=== PATIENT | female | born 1955 | race Caucasian/White ===

== ENCOUNTER 2019-04-11 09:34 | Outpatient (RCR) | payer OTHER, SELFPAY ==
[2019-04-11 09:45] VITALS: BMI 29.9
[2019-04-11 11:21] VITALS: BMI 29.9
== END 2019-07-10 23:59 | disposition home or self-care (01) ==
LOC: ANHDMC 09:34
DX: E11.9 Type 2 diabetes mellitus without complications (principal); Z71.3 Dietary counseling and surveillance
CPT/HCPCS: 97802

== ENCOUNTER 2019-05-10 09:53 | Outpatient (CLI) | payer OTHER, SELFPAY ==
--- NOTE | ~2019-05-10 | XR_ITS ---
XR ankle RT min 3V DATE: 05/10/2019 10:58 INDICATION: Right ankle and foot pain TECHNIQUE: 3 weightbearing views COMPARISON: None FINDINGS: No fracture or dislocation of the ankle or disruption of the ankle mortise is detected. No periosteal reaction or bone destruction. IMPRESSION: Negative right ankle Reviewed, dictated and finalized at location B. 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
--- NOTE | ~2019-05-10 | XR_ITS ---
XR foot RT min 3V DATE: 05/10/2019 10:58 INDICATION: Ankle and foot pain TECHNIQUE: 3 weightbearing views COMPARISON: None FINDINGS: Mild osteoarthritis at the first metatarsophalangeal joint. There is suggestion of calcaneal cuboid coalition on one view; consider CT evaluation.. Mild plantar calcaneal enthesopathy without evidence of erosive change or periostitis. IMPRESSION: Suggestion of calcaneal cuboid coalition on one view; consider CT evaluation Plantar calcaneal enthesopathy Mild osteoarthritis at first metatarsophalangeal joint Reviewed, dictated and finalized at location B. 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
== END 2019-05-10 09:54 | disposition home or self-care (01) ==
PROVIDERS: Visit Provider Podiatrist Foot & Ankle Surgery
DX: M19.071 Primary osteoarthritis, right ankle and foot (principal)
CPT/HCPCS: 73610; 73630

== ENCOUNTER 2019-05-10 10:19 | Outpatient (CLI) | payer OTHER, SELFPAY ==
--- NOTE | ~2019-05-10 | XR_ITS ---
XR lumbar spine min 4V DATE: 05/10/2019 11:00 INDICATION: Acute left low back pain with left sciatica TECHNIQUE: AP, lateral, bilateral oblique and coned lateral lumbosacral views COMPARISON: None FINDINGS: There is minimal levoscoliosis of the lumbar spine. There are 6 functional lumbar vertebrae . No fracture or bone destruction, spondylolysis or spondylolisthesis. The lumbar pedicles are intact. The lumbar and lumbosacral interspaces are relatively preserved. There is mild degenerative spurring. The sacroiliac joints are normal. Surgical clips, right upper quadrant, consistent with cholecystectomy. IMPRESSION: Mild levoscoliosis Mild degenerative spurring Status post cholecystectomy Reviewed, dictated and finalized at location B. 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
== END 2019-05-10 10:20 | disposition home or self-care (01) ==
DX: M54.42 Lumbago with sciatica, left side (principal); Z90.49 Acquired absence of other specified parts of digestive tract
CPT/HCPCS: 72110

== ENCOUNTER 2019-08-17 07:51 | Outpatient (RCR) | payer OTHER, SELFPAY ==
[2019-08-17 07:57] VITALS: BMI 28.3
== END 2019-11-15 23:59 | disposition home or self-care (01) ==
LOC: ANHDMC 07:51
DX: E11.9 Type 2 diabetes mellitus without complications (principal); Z71.3 Dietary counseling and surveillance
CPT/HCPCS: 97803

== ENCOUNTER 2020-02-22 14:45 | Outpatient (RCR) | payer OTHER, SELFPAY ==
[2020-02-22 14:59] VITALS: BMI 28.4
== END 2020-05-14 11:33 | disposition home or self-care (01) ==
LOC: ANHDMC 14:45
DX: E11.9 Type 2 diabetes mellitus without complications (principal); Z71.3 Dietary counseling and surveillance
CPT/HCPCS: 97803

== ENCOUNTER 2020-12-07 08:55 | Outpatient (CLI) | payer OTHER, SELFPAY ==
--- NOTE | ~2020-12-07 | DEXA_ITS ---
Bone Density Report Name: Mitzy La Age: 65 Sex: Female Ethnicity: White Date of : 1955 Indication: osteopenia; height loss; postmenopausal Referring Provider: Ash, Korey Study: Bone densitometry was performed. Exam Date: December 07, 2020 Accession number: [id number] Bone Density: Region BMD T-score Z-score Classification AP Spine (L1-L4) 0.872 -1.6 0.4 Osteopenia Femoral Neck (Left) 0.637 -1.9 -0.3 Osteopenia Total Hip (Left) 0.806 -1.1 0.3 Osteopenia Total Hip Bilateral Avg 0.813 -1.1 0.4 Osteopenia Femoral Neck (Right) 0.703 -1.3 0.3 Osteopenia Total Hip (Right) 0.820 -1.0 0.4 Normal World Health Organization criteria for BMD impression classify patients as: Normal (T-score at or above -1.0), Osteopenia (T-score between -1.0 and -2.5), or Osteoporosis (T-score at or below -2.5). 10-year Fracture Risk(1): Major Osteoporotic Fracture 10% Hip Fracture 1.5% Reported Risk Factors: [place] (), Neck BMD=0.637, BMI=30.3 (1) FRAX(R) Version 3.08. Fracture probability calculated for an untreated patient. Fracture probability may be lower if the patient has received treatment. Previous Exams: Region Exam Age BMD T-score BMD Change BMD Change Date g/cm2 vs Baseline vs Previous AP Spine(L1-L4) 12/07/2020 65 0.872 -1.6 -0.181(-17.2%) 0.015(1.7%) 11/25/2018 63 0.858 -1.7 -0.195(-18.5%) -0.053(-5.8%)* 11/12/2016 61 0.910 -1.2 -0.143(-13.6%) 0.060(7.1%)* 10/17/2014 59 0.850 -1.8 -0.203(-19.3%) -0.057(-6.2%)# 07/25/2012 57 0.907 -1.3 -0.146(-13.9%) -0.022(-2.4%)# 06/27/2010 55 0.929 -1.1 -0.124(-11.8%) -0.124(-11.8%) 06/18/2008 53 1.053 0.1 Total Hip(Left) 12/07/2020 65 0.806 -1.1 -0.104(-11.4%) -0.010(-1.2%) 11/25/2018 63 0.816 -1.0 -0.093(-10.3%) -0.030(-3.6%)* 11/12/2016 61 0.846 -0.8 -0.063(-7.0%)# 0.055(6.9%)* 10/17/2014 59 0.792 -1.2 -0.118(-13.0%) -0.030(-3.6%)# 07/25/2012 57 0.822 -1.0 -0.088(-9.7%)# -0.041(-4.7%)# 06/27/2010 55 0.862 -0.7 -0.047(-5.2%)* -0.047(-5.2%)* 06/18/2008 53 0.909 -0.3 Total Hip(Right) 12/07/2020 65 0.820 -1.0 -0.098(-10.7%) 0.006(0.7%) 11/25/2018 63 0.814 -1.0 -0.104(-11.3%) -0.025(-3.0%) 11/12/2016 61 0.839 -0.8 -0.079(-8.6%)# 0.014(1.7%) 10/17/2014 59 0.825 -1.0 -0.093(-10.1%) -0.037(-4.3%)# 07/25/2012 57 0.862 -0.7 -0.056(-6.1%)# -0.016(-1.8%)# 06/27/2010 55 0.877 -0.5 -0.041(-4.4%)* -0.041(-4.4%)* 06/18/2008 53 0.918 -0.2 *Denotes significance at 95% confi
== END 2020-12-07 08:56 | disposition home or self-care (01) ==
LOC: ANHIMG 08:57
PROVIDERS: Visit Provider Internal Medicine
DX: M85.80 Other specified disorders of bone density and structure, unspecified site (principal); E55.9 Vitamin D deficiency, unspecified; Z78.0 Asymptomatic menopausal state
CPT/HCPCS: 77080

== ENCOUNTER 2021-02-22 08:47 | Outpatient (CLI) | payer OTHER, SELFPAY ==
--- NOTE | ~2021-02-22 | MR_ITS ---
EXAMINATION: MR lower leg LT wo con DATE: 02/22/2021 09:58 INDICATION: Several months of nontraumatic left lower leg pain at the knee and calf. TECHNIQUE: Magnetic resonance imaging (MRI) of the left lower leg was performed without intravenous c ontrast. Sequences included axial, sagittal and coronal T1-weighted FSE and fluid sensitive FSE STIR. The contralateral right lower limbs included on the coronal images. COMPARISON: None. FINDINGS: Bone alignment is normal. There is normal marrow signal throughout with no reactive edema, fracture o r pathologic marrow replacing process. No asymmetric muscle atrophy or abnormal muscle signal at the calves. Physiologic amount of fluid at the knees and ankles. Relatively symmetric minimal subcutaneou s edema along the anterior margin of the tibia and posteriorly at the mid to distal calves. No other abnormal fluid collections identified. IMPRESSION: 1. Unremarkable MRI of the left calf with normal bone marrow and muscle signal with no evident etiolo gy for reported left lower leg pain. Reviewed, dictated and finalized at location A. 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 Unremarkable MRI of the left calf with normal bone marrow and muscle signal with no evident etiology for reported left lower leg pain.
== END 2021-02-22 08:48 | disposition home or self-care (01) ==
LOC: ANHIMG 08:56
PROVIDERS: Visit Provider Internal Medicine
DX: M79.605 Pain in left leg (principal); E11.42 Type 2 diabetes mellitus with diabetic polyneuropathy; I73.9 Peripheral vascular disease, unspecified
CPT/HCPCS: 73718

== ENCOUNTER 2021-03-07 08:21 | Outpatient (CLI) | payer OTHER, SELFPAY ==
--- NOTE | ~2021-03-07 | US_ITS ---
US arterial ankle brachial ind INDICATION: Left leg pain and peripheral neuropathy TECHNIQUE: Segmental pressures and plethysmographic and Doppler waveforms of the brachial and lower e xtremity arteries were obtained. COMPARISON: 03/24/2018. FINDINGS: Right and left brachial artery pressures of 136 mm Hg and 140 mm Hg, respectively, are concordant (no rmal difference <= 30 mmHg). The right ankle-brachial index (FARZANA) is 1.2 (normal >= 0.9-1.0). The right great toe-brachial index ( TBI) is 0.64 (normal >= 0.60). The left FARZANA is 1.15. The left TBI is 0.58. IMPRESSION: 1. Mildly diminished left toe brachial index measuring 0.58, compatible with mild peripheral arterial disease. Normal ankle-brachial indices bilaterally. Reviewed, dictated and finalized at location A. OLOGIST IMPRESSION: 1. Mildly diminished left toe brachial index measuring 0.58, compatible with mi ld peripheral arterial disease. Normal ankle-brachial indices bilaterally.
== END 2021-03-07 08:22 | disposition home or self-care (01) ==
PROVIDERS: Visit Provider Internal Medicine
DX: E11.42 Type 2 diabetes mellitus with diabetic polyneuropathy (principal); I73.9 Peripheral vascular disease, unspecified; M79.605 Pain in left leg
CPT/HCPCS: 93922

== ENCOUNTER 2023-03-09 07:57 | Outpatient (CLI) | payer OTHER, SELFPAY ==
--- NOTE | ~2023-03-09 | DEXA_ITS ---
Bone Density Report Name: JASMIN HARRIS Age: 67 Sex: Female Ethnicity: White Date of : 1955 Indication: osteopenia; height loss; postmenopausal Referring Provider: ALEX, ARLETTE Study: Bone densitometry was performed. Exam Date: March 09, 2023 Accession number: [id number] Bone Density: Region BMD T-score Z-score Classification AP Spine(L1-L4) 0.867 -1.6 0.5 Osteopenia Femoral Neck (Left) 0.650 -1.8 0.0 Osteopenia Total Hip (Left) 0.790 -1.2 0.2 Osteopenia Femoral Neck (Right) 0.724 -1.1 0.7 Osteopenia Total Hip (Right) 0.806 -1.1 0.4 Osteopenia Total Hip Mean 0.798 -1.2 0.3 Osteopenia World Health Organization criteria for BMD impression classify patients as: Normal (T-score at or above -1.0), Osteopenia (T-score between -1.0 and -2.5), or Osteoporosis (T-score at or below -2.5). 10-year Fracture Risk(1): Major Osteoporotic Fracture 10% Hip Fracture 1.6% Reported Risk Factors: [place] (), Neck BMD=0.650, BMI=29.9 (1) FRAX(R) Version 3.08. Fracture probability calculated for an untreated patient. Fracture probability may be lower if the patient has received treatment. Previous Exams: Region Exam Age BMD T-score BMD Change BMD Change Date g/cm2 vs Baseline vs Previous AP Spine (L1-L4) 03/09/2023 67 0.867 -1.6 -0.040 (-4.4%) -0.005 (-0.6%) 12/07/2020 65 0.872 -1.6 -0.034 (-3.8%) 0.015 (1.7%) 11/25/2018 63 0.858 -1.7 -0.049 (-5.4%) -0.053 (-5.8%) 11/12/2016 61 0.910 -1.2 0.003 (0.4%)# 0.060 (7.1%)* 10/17/2014 59 0.850 -1.8 -0.057 (-6.2%) -0.057 (-6.2%) 07/25/2012 57 0.907 -1.3 Total Hip(Left) 03/09/2023 67 0.790 -1.2 -0.032 (-3.9%) -0.016 (-2.0%) 12/07/2020 65 0.806 -1.1 -0.016 (-1.9%) -0.010 (-1.2%) 11/25/2018 63 0.816 -1.0 -0.006 (-0.7%) -0.030 (-3.6%) 11/12/2016 61 0.846 -0.8 0.025 (3.0%)# 0.055 (6.9%)* 10/17/2014 59 0.792 -1.2 -0.030 (-3.6%) -0.030 (-3.6%) 07/25/2012 57 0.822 -1.0 Total Hip(Right) 03/09/2023 67 0.806 -1.1 -0.056 (-6.5%) -0.014 (-1.7%) 12/07/2020 65 0.820 -1.0 -0.042 (-4.9%) 0.006 (0.7%) 11/25/2018 63 0.814 -1.0 -0.048 (-5.6%) -0.025 (-3.0%) 11/12/2016 61 0.839 -0.8 -0.023 (-2.6%) 0.014 (1.7%) 10/17/2014 59 0.825 -1.0 -0.037 (-4.3%) -0.037 (-4.3%) 07/25/2012 57 0.862 -0.7 *Denotes significance at 95% confidence level, LSC for AP Spine = 0.022 g/cm2, LSC for Total Hip = 0.027 g/cm2 # Denotes dissimilar scan types or analysis methods Clinical Information Provided by Tuyet
== END 2023-03-09 07:58 | disposition home or self-care (01) ==
PROVIDERS: Visit Provider Internal Medicine
DX: M85.89 Other specified disorders of bone density and structure, multiple sites (principal)
CPT/HCPCS: 77080

== ENCOUNTER 2023-06-01 11:00 | Outpatient (RCR) | payer MEDICARE, OTHER, SELFPAY ==
--- NOTE | 2023-04-09 11:56 | OPREHPOC ---
Outpatient Therapy Plan of Care This is a Multidisciplinary Plan of Care that may contain components documented by all disciplines (PT, OT, and ST.) PT Problem 1 PT Problem #1 Knowledge Deficit PT Goal 1 Goal 1. Patient will perform independent HEP Target Visit 5 PT Problem 2 PT Problem #2 Pain PT Goal 1 Goal 1. Pain no higher than 1/10 with pelvic floor palpation 2. Pain no higher than 1/10 with ADL's Target Visit 5 PT Problem 3 PT Problem #3 Impaired Strength PT Goal 1 Goal 1. Improve pelvic floor strength to 3/5 to decrease incontinence Target Visit 5 PT Problem 4 PT Problem #4 Impaired Functional ADLs PT Goal 1 Goal 1. Patient will void no more than 8 times a day 2. Patient will report incontinence no more than 1 time per month Target Visit 5
--- NOTE | 2023-04-09 11:56 | PTOPEVAL1 ---
Assessment and note entered by Fatoumata Daniel DPT Evaluation Information Assessment Status Evaluation Subjective Information Pt reports pelvic/groin pain. Sometimes notices it with movement, with a BM, or with urinating. Pain has been occurring for several years, unsure onset . Highest pain 6/10 and lowest 0/10. 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 Urinates more than 10 times a day and 1-3 times at night. Also reports difficulty with urine stream and actually feels better with standing. Can hold urge to void very short amounts of time and reports difficulty getting to the bathroom without incontinence. Incontinence occurs weekly. BM typically daily. Previous pain with orgasm and has had pain with pelvic exams and sometimes feels a shock type of feeling. Pt has been 2 times with 2 deliveries. for both, incisional hernia after the second. Previous hemorrhoids. Pt is retired. States she is always planning for bathroom stops and has to know where the bathroom is, sometimes has to change clothes due to incontinence. Patient goal: get rid of the pain and control urine better Reported Pain Level Pain Score 3: Self Report Assessment PT Clinical Summary The patient is presenting to skilled therapy with a history of chronic left sided pelvic pain and reports urinary incontinence. She demonstrates increased pelvic floor muscle tone and pain with palpation, as well as decreased strength and endurance. These impairments are contributing to her pain and incontinence. She will benefit from therapy to address her impairments and safely reduce pain, incontinence, and improve function. Plan of Care Interventions Electrical Stimulation,Hot Pack/Cold Pack,Manual Therapy,Neuro Re-education,Patient/Caregiver Education,Therapeutic Activities,Therapeutic Exercise PT Services Indicated Yes Treatment Frequency and 1 time a week for 4 visits Duration These treatments will address the objective and functional deficits as defined above. The patient will be advanced safely and appropriately in order for the patient to progress towards his/her prior level of function. Additional exercises will be introduced and as well as a comprehensive home exercise program upon discharge, if needed, ?to ensure carryover of functional gains achieved in the clinic. This treatment plan has been reviewed and agreement upon by the patient.
--- NOTE | 2023-06-01 11:31 | OPREHPOC ---
Outpatient Therapy Plan of Care This is a Multidisciplinary Plan of Care that may contain components documented by all disciplines (PT, OT, and ST.) PT Problem 1 PT Problem #1 Knowledge Deficit PT Goal 1 Goal 1. Patient will perform independent HEP Target Visit 5 Progress Met PT Problem 2 PT Problem #2 Pain PT Goal 1 Goal 1. Pain no higher than 1/10 with pelvic floor palpation 2. Pain no higher than 1/10 with ADL's Target Visit 5 Progress Partially Met Comment 1. not met 2. met PT Problem 3 PT Problem #3 Impaired Strength PT Goal 1 Goal 1. Improve pelvic floor strength to 3/5 to decrease incontinence Target Visit 5 Progress Met PT Problem 4 PT Problem #4 Impaired Functional ADLs PT Goal 1 Goal 1. Patient will void no more than 8 times a day 2. Patient will report incontinence no more than 1 time per month Target Visit 5 Progress Partially Met
--- NOTE | 2023-06-01 11:32 | PTOPDC ---
Assessment and note entered by Fatoumata Daniel DPT Evaluation Information Assessment Status Discharge Subjective Information Pt reports overall she is feeling improvements with therapy. Voids 8-10 times a day and 1-2 times a night. Can hold urge longer but unable to give a specific time. Still getting a sense of urgency at times when getting to the toilet. Pelvic pain 0 /10 in the last week. Denies urinary incontinence over the last two weeks. Reported Pain Level Pain Score 0: Self Report Assessment PT Clinical Summary The patient has made some progress in therapy and reports improvements in her frequency of urination , ability to hold urge, decreased incontinence, and decreased pelvic pain. She demonstrates improved core and pelvic floor strength but continues to have pain with palpation of pelvic floor this visit. Due to patient's progress overall and subjective reports of difficulty scheduling therapy due to her 's health issues, plan for discharge at this time. She has been educated to continue her HEP and to follow up with MD and/or PT as needed. Plan of Care PT Services Indicated No
== END 2023-06-01 13:04 | disposition home or self-care (01) ==
LOC: ANHPT 11:00
PROVIDERS: Visit Provider Obstetrics & Gynecology
DX: R10.2 Pelvic and perineal pain (principal)
CPT/HCPCS: 97110; 97112; 97140; 97162; 97530

== ENCOUNTER 2024-09-27 13:38 | Outpatient (CLI) | payer OTHER, SELFPAY ==
--- NOTE | ~2024-09-27 | XR_ITS ---
HISTORY: RIGHT HIP PAIN NON INJ X SEVERAL MOS COMPARISON: None TECHNIQUE: 2 views of the right hip FINDINGS: No acute fracture or dislocation is identified. Superior lateral sclerosis of the femoral acetabular joint space is present consistent with osteoarth ritis. Joint space narrowing detected within the right SI joint with sclerosis. Joint space narrowing within the pubic symphysis is also noted, with sclerosis and irregularity.Fecal stasis within the colon. Air within the rectum. Normal mineralization. IMPRESSION: Degenerative disease without acute fracture or dislocation Reviewed, dictated and finalized at location A.
== END 2024-09-27 13:39 | disposition home or self-care (01) ==
DX: M16.11 Unilateral primary osteoarthritis, right hip (principal)
CPT/HCPCS: 73502

== ENCOUNTER 2025-03-13 08:39 | Outpatient (CLI) | payer OTHER, SELFPAY ==
--- NOTE | ~2025-03-13 | DEXA_ITS ---
Bone Density Report Name: JASMIN HARRIS Age: 69 Sex: Female Ethnicity: White Date of : 1955 Indication: osteopenia; height loss; Referring Provider: UNKNOWN, UNKNOWN Study: Bone densitometry was performed. Exam Date: March 13, 2025 Accession number: [id number] Bone Density: Region BMD T-score Z-score Classification AP Spine(L1-L4) 0.888 -1.4 0.8 Osteopenia Femoral Neck (Left) 0.607 -2.2 -0.3 Osteopenia Total Hip (Left) 0.783 -1.3 0.3 Osteopenia Femoral Neck (Right) 0.676 -1.6 0.3 Osteopenia Total Hip (Right) 0.766 -1.4 0.2 Osteopenia Total Hip Mean 0.774 -1.4 0.3 Osteopenia World Health Organization criteria for BMD impression classify patients as: Normal (T-score at or above -1.0), Osteopenia (T-score between -1.0 and -2.5), or Osteoporosis (T-score at or below -2.5). 10-year Fracture Risk(1): Major Osteoporotic Fracture 13% Hip Fracture 2.8% Reported Risk Factors: [place] (), Neck BMD=0.607, BMI=30.8 (1) FRAX(R) Version 3.08. Fracture probability calculated for an untreated patient. Fracture probability may be lower if the patient has received treatment. Previous Exams: Region Exam Age BMD T-score BMD Change BMD Change Date g/cm2 vs Baseline vs Previous AP Spine (L1-L4) 03/13/2025 69 0.888 -1.4 -0.018 (-2.0%) 0.022 (2.5%) 03/09/2023 67 0.867 -1.6 -0.040 (-4.4%) -0.005 (-0.6%) 12/07/2020 65 0.872 -1.6 -0.034 (-3.8%) 0.015 (1.7%) 11/25/2018 63 0.858 -1.7 -0.049 (-5.4%) -0.053 (-5.8%) 11/12/2016 61 0.910 -1.2 0.003 (0.4%)# 0.060 (7.1%)* 10/17/2014 59 0.850 -1.8 -0.057 (-6.2%) -0.057 (-6.2%) 07/25/2012 57 0.907 -1.3 Total Hip(Left) 03/13/2025 69 0.783 -1.3 -0.039 (-4.7%) -0.007 (-0.8%) 03/09/2023 67 0.790 -1.2 -0.032 (-3.9%) -0.016 (-2.0%) 12/07/2020 65 0.806 -1.1 -0.016 (-1.9%) -0.010 (-1.2%) 11/25/2018 63 0.816 -1.0 -0.006 (-0.7%) -0.030 (-3.6%) 11/12/2016 61 0.846 -0.8 0.025 (3.0%)# 0.055 (6.9%)* 10/17/2014 59 0.792 -1.2 -0.030 (-3.6%) -0.030 (-3.6%) 07/25/2012 57 0.822 -1.0 Total Hip(Right) 03/13/2025 69 0.766 -1.4 -0.096 (-11.2% -0.040 (-5.0%) 03/09/2023 67 0.806 -1.1 -0.056 (-6.5%) -0.014 (-1.7%) 12/07/2020 65 0.820 -1.0 -0.042 (-4.9%) 0.006 (0.7%) 11/25/2018 63 0.814 -1.0 -0.048 (-5.6%) -0.025 (-3.0%) 11/12/2016 61 0.839 -0.8 -0.023 (-2.6%) 0.014 (1.7%) 10/17/2014 59 0.825 -1.0 -0.037 (-4.3%) -0.037 (-4.3%) 07/25/2012 57 0.862 -0.7 *Denotes significance at 95% confidence level, LSC for AP Spine = 0.022 g/cm2, LSC for Total Hip = 0.027 g/cm2 # Denotes dissimilar scan types or analysis methods Clinical Information Provided by Patient: Patient maximum height was 67.5 Menopause Age: 51 Drinks caffeinated beverages Onset of menses at age 12 Number of children 2 Impression: The patient has low bone mass, based on the Left Femoral Neck T-score. The patient has an estimated ten-year risk of hip fracture of 2.8% and an estimated ten-year risk of major fracture of 13%, based on the WHO FRAX algorithm. The BMD for the Total Hip(Right) decreased, changing by -5.0% since the last DXA exam. Discussion: BONE DENSITY IS LOW AT ONE OR MORE SKELETAL SITES. This patient's lowest T-score is low at one or more skeletal sites. It meets the World Health Organization's (WHO) criteria for ?low bone mass? (T-score between -1.0 and -2.5). The patient's 10-year risk of fracture as calculated by FRAX is less than the threshold where pharmacological therapy is recommended by the National Osteoporosis Foundation (NOF). However, all treatment decisions require clinical judgment and consideration of individual patient factors, including patient preferences, comorbidities, previous drug use, risk factors not captured in the FRAX model (e.g., frailty, falls, vitamin D deficiency, increased bone turnover, interval significant decline in bone density) and possible under or overestimation of fracture risk by FRAX. The patient should follow a healthful lifestyle (good nutrition with adequate calcium and vitamin D, and appropriate weight-bearing exercise). Follow-Up: Consider repeating this study in 2 years to reassess this patient's status, or sooner if there is some new clinical indication. Reported by: FRANKLIN on 03/13/2025 9:18:00 AM. Reviewed, dictated and finalized at location A.
== END 2025-03-13 08:40 | disposition home or self-care (01) ==
LOC: ANHFOHIMG 08:40
DX: M85.89 Other specified disorders of bone density and structure, multiple sites (principal); Z78.0 Asymptomatic menopausal state
CPT/HCPCS: 77080